=== PATIENT | male | born 1995 | race Caucasian/White ===

== ENCOUNTER → 2023-11-29 10:56 | Outpatient (REF) | payer BC, SELFPAY | LOC: DHSLP 10:56 | PROVIDERS: ATTENDING PHYSICIAN Internal Medicine | DX: G47.33 Obstructive sleep apnea (adult) (pediatric) (principal) | CPT/HCPCS: 95800 ==

== ENCOUNTER → 2023-12-13 09:00 | Outpatient (REF) | payer BC, SELFPAY ==
[2023-12-13 10:31] LABS: % Basophils 0.7 % (0-2); % Eosinophils 4.1 % (0-6); % Immature Granulocytes 0.2 % (0-0.5); % Lymphocytes 28.6 % (20.5-51.1); % Monocytes 10.3 % (1.7-9.3); % Neutrophils 56.1 % (42.2-75.2); Absolute Eosinophils 0.2 10^3/uL (0-0.7); Absolute Lymphocytes 1.7 10^3/uL (1.2-3.4); Absolute Monocytes 0.6 10^3/uL (0.1-0.6); Absolute Neutrophils 3.3 10^3/uL (1.4-6.5); Hematocrit 39.6 % (39.0-52.0); Hemoglobin 13.6 g/dL (13.0-18.0); Mean Corp Hgb Conc. 34.3 g/dL (33.0-37.0); Mean Corpuscular Volume 81.6 fL (80.0-94.0); Nucleated Red Blood Cells % 0 % (-); Platelet Count 314 10^3/uL (130-400); Red Blood Cell Count 4.85 10^6/uL (4.70-6.10); Red Cell Dist. Width 12.8 % (11.5-14.5); White Blood Cell Count 5.8 10^3/uL (4.8-10.8)
[2023-12-13 11:05] LABS: ALT (SGPT) 49 U/L (0-50); AST (SGOT) 27 U/L (17-59); Albumin 4.5 g/dl (3.5-5.0); Alkaline Phosphatase 89 U/L (38-126); Blood Urea Nitrogen 13 mg/dl (9-20); Calcium 9.9 mg/dl (8.4-10.2); Carbon Dioxide 24 mmol/L (22-30); Chloride 99 mmol/L (98-107); Glucose 98 mg/dl (70-99); HDL Cholesterol 61 mg/dl; LDL Cholesterol, Calculated 126 mg/dl; Potassium 4.8 mmol/L (3.5-5.1); Sodium 137 mmol/L (135-145); Total Bilirubin 0.8 mg/dl (0.2-1.3); Total Cholesterol 217 mg/dl (50-199); Total Protein 7.2 g/dl (6.3-8.2); Triglyceride 150 mg/dl (10-149); Very Low Density Lipoprotein 30 mg/dl (0-30); eGFR > 60.00
[2023-12-13 11:31] LABS: TSH 2.09 uIU/ml (0.47-4.68)
[2023-12-13 11:35] LABS: Glycohemoglobin (HgbA1c) 5.7 % (4.0-5.6)
== END ==
LOC: RAD 09:00
PROVIDERS: ATTENDING PHYSICIAN Internal Medicine
DX: T14.8XXA Other injury of unspecified body region, initial encounter (principal); M25.511 Pain in right shoulder; E66.01 Morbid (severe) obesity due to excess calories; R29.818 Other symptoms and signs involving the nervous system; F41.1 Generalized anxiety disorder
CPT/HCPCS: 36415; 73030; 74178; 80053; 80061; 83036; 84443; 85025; Q9967